=== PATIENT | male | born 1950 | race African-American/Black ===

== ENCOUNTER 2019-04-22 06:32 | Day surgery (SDC) | payer MEDICARE ==
[~2019-04-22] VITALS: Ht 180.3 cm; Wt 95.3 kg
[~2019-04-22 06:32] MED LIST: AMLO5TAB4 PO; ASPI-1393 PO; OLMESARTAN PO
[2019-04-22] MEDS ORDERED: FENTANYL CITRATE/PF 50MCG/ML 2ML VIAL ONE (07:37)
[2019-04-22] MEDS ORDERED: MIDAZOLAM HCL 2 MG/2 ML VIAL ONE (07:37)
[2019-04-22] MEDS ORDERED: LIDOCAINE HCL 1% 20ML VIAL (Pyxis) INJ ONE (07:38)
[2019-04-22] MEDS ORDERED: IODIXANOL 320MG/ML 100 ML BOTTLE IV ONE (07:38)
[2019-04-22] MEDS ORDERED: ASPIRIN/SOD BICARB/CITRIC ACID 324MG TAB EFF ONE (07:38)
[2019-04-22] MEDS ORDERED: OLME40TA11 PO (07:52)
[2019-04-22] MEDS ORDERED: ATOR80TA PO (07:52)
[2019-04-22] MEDS ORDERED: ONDANSETRON HCL 4MG/2ML INJ IV PRN (09:00)
[2019-04-22] MEDS ORDERED: ATROPINE SULFATE 1MG/10ML SYR IV PRN (09:00)
[2019-04-22] MEDS ORDERED: MORPHINE SULFATE 2 MG/ML CPJ (NOT FOR IM USE) IV PRN (09:00)
[2019-04-22] MEDS ORDERED: ACETAMINOPHEN 325MG TABLET PO PRN (09:00)
[2019-04-22] MEDS ORDERED: NITROGLYCERIN 50MCG/ML 10ML VIAL (CATH LAB) IV ONE (09:25)
[2019-04-22] MEDS ORDERED: NICARDIPINE 100MCG/ML 10ML VIAL (CATH LAB) IV ONE (09:25)
[2019-04-22] MEDS ORDERED: HEPARIN SODIUM 1,000 UNIT/1ML VIAL IV ONE (09:25)
== END 2019-04-22 12:45 | disposition home or self-care (01) ==
LOC: CCL 06:32
PROVIDERS: ATTEND Specialist
DX: I25.10 Atherosclerotic heart disease of native coronary artery without angina pectoris (principal); I10 Essential (primary) hypertension; E78.5 Hyperlipidemia, unspecified; K21.9 Gastro-esophageal reflux disease without esophagitis; Z95.5 Presence of coronary angioplasty implant and graft; Z79.82 Long term (current) use of aspirin; Z79.899 Other long term (current) drug therapy
CPT/HCPCS: 93458; 99152; 99153; C1769; C1887; C1893; J1644; J2250; J3010; J3490; Q9967; G0500

== ENCOUNTER → 2020-05-24 | Outpatient (CLI) | payer MEDICARE ==
[~2020-05-24] MED LIST changes: -ASPI-1393 PO; +ASPI-1497 PO; +ATOR80TA PO; +OLME40TA11 PO
== END | disposition home or self-care (01) ==
LOC: LAB 08:49
PROVIDERS: ATTEND Specialist
DX: R05 Cough (principal); Z20.828 Contact with and (suspected) exposure to other viral communicable diseases
CPT/HCPCS: C9803; U0003

== ENCOUNTER 2020-05-25 07:14 | Day surgery (SDC) | payer MEDICARE ==
[~2020-05-25] VITALS: Ht 175.3 cm; Wt 93.4 kg
[2020-05-25] MEDS ORDERED: HEPARIN SODIUM 1,000 UNIT/1ML VIAL IV ONE (07:45)
[2020-05-25] MEDS ORDERED: FENTANYL CITRATE/PF 50MCG/ML 2ML VIAL ONE ×2 (07:46→09:02)
[2020-05-25] MEDS ORDERED: LIDOCAINE HCL 1% 20ML VIAL (Pyxis) INJ ONE (07:46)
[2020-05-25] MEDS ORDERED: ASPIRIN/SOD BICARB/CITRIC ACID 324MG TAB EFF ONE (07:46)
[2020-05-25] MEDS ORDERED: IODIXANOL 320MG/ML 100 ML BOTTLE IV ONE (07:47)
[2020-05-25] MEDS ORDERED: MIDAZOLAM HCL 2 MG/2 ML VIAL ONE (07:47)
[2020-05-25 08:46] LABS: HEMATOCRIT 37.5 % (42.0-52.0); HEMOGLOBIN 12.5 g/dL (14.0-18.0); MEAN CORPUSCULAR HEMOGLOBIN 28.6 pg (28.0-32.0); MEAN CORPUSCULAR VOLUME 85.8 fL (80.0-94.0); PLATELET 200 x1000/uL (130-400); RED BLOOD CELL COUNT 4.37 mill/uL (4.7-6.1); RED CELL DISTRIBUTION WIDTH 14.6 % (11.6-14.6)
[2020-05-25 08:51] LABS: CHLORIDE 108 mEq/L (98-107)
[2020-05-25] MEDS ORDERED: ACETAMINOPHEN 325MG TABLET PO PRN (09:15)
[2020-05-25] MEDS ORDERED: ONDANSETRON HCL 4MG/2ML INJ IV PRN (09:15)
[2020-05-25] MEDS ORDERED: MORPHINE SULFATE 2 MG/ML CPJ (NOT FOR IM USE) IV PRN (09:15)
[2020-05-25] MEDS ORDERED: ATROPINE SULFATE 1MG/10ML SYR IV PRN (09:15)
== END 2020-05-25 13:10 | disposition home or self-care (01) ==
LOC: CCL 07:14
PROVIDERS: ATTEND Specialist
DX: I25.10 Atherosclerotic heart disease of native coronary artery without angina pectoris (principal); I11.9 Hypertensive heart disease without heart failure; N40.1 Benign prostatic hyperplasia with lower urinary tract symptoms; E78.2 Mixed hyperlipidemia; E66.3 Overweight; Z82.49 Family history of ischemic heart disease and other diseases of the circulatory system; Z79.82 Long term (current) use of aspirin; Z79.899 Other long term (current) drug therapy; Z98.890 Other specified postprocedural states
CPT/HCPCS: 36415; 80048; 85027; 85347; 93458; 93571; C1769; C1887; C1893; J1644; J2250; J3010; J3490; Q9967